=== PATIENT | male | born 1990 | race Caucasian/White ===

== ENCOUNTER 2019-03-06 17:02 | Inpatient (IN) | payer OTHER ==
[2019-03-06] MEDS ORDERED: Lorazepam 2 MG/ML VIAL ONE ×3 (17:39→19:54)
[2019-03-06] MEDS ORDERED: Morphine 4 MG/ML VIAL ONE ×2 (17:39→20:06)
[2019-03-06 17:50] LABS: #Basophils 0.1 thou/uL (0.0-0.2); #Lymphocytes 0.5 thou/uL (1.20-3.40); #Monocytes 0.5 thou/uL (0.11-0.59); #Neutrophils 6.4 thou/uL (1.40-6.50); %Basophils 1.3 % (0.0-1.0); %Eosinophils 0.1 % (0.0-10.0); %Lymphocytes 6.7 % (21.0-51.0); %Monocytes 6.8 % (0.0-10.0); %Neutrophils 85.2 % (42.0-75.0); Hemoglobin 15.2 g/dL (14.0-18.0); Mean Corpuscular HGB CONC 35.4 g/dL (32.0-36.0); Mean Corpuscular Hemoglobin 33.6 pg (27.0-31.0); Mean Corpuscular Volume 94.9 fL (78.0-98.0); Mean Platelet Volume 6.5 fL (7.4-10.4); Platelet Count 342 thou/uL (130-400); RBC Distribution Width 14.1 % (11.5-14.5); Red Blood Cell (RBC) Count 4.51 mill/uL (4.70-6.10); White Blood Cell (WBC) Count 7.5 thou/uL (4.8-10.8)
[2019-03-06] MEDS ORDERED: Bupivacaine 0.5% 10 ML VIAL ONE (17:58)
[2019-03-06 18:02] LABS: ALT (SGPT) 216 U/L (8-55); AST (SGOT) 238 U/L (5-34); Albumin 4.8 g/dL (3.5-5.0); Alkaline Phosphatase 105 U/L (40-150); Anion Gap 21 mmol/L (10-20); BUN (Urea Nitrogen) 16 mg/dL (8.9-20.6); Bilirubin, Total 1.4 mg/dL (0.2-1.2); Calc. Creatinine Clearance 0 mL/min (70-130); Calcium 10.8 mg/dL (7.8-10.44); Carbon Dioxide 19 mmol/L (22-29); Chloride 98 mmol/L (98-107); Estimated GFR-MDRD 79; Globulin 3.8 g/dL (2.4-3.5); Glucose 168 mg/dL (70-105); Protein, Total 8.6 g/dL (6.0-8.3); Sodium 134 mmol/L (136-145)
--- NOTE | 2019-03-06 18:14 | CT ---
CT brain noncontrast: HISTORY: 29-year-old male with seizure and head injury FINDINGS: There is no evidence of acute intra-axial or extra-axial hemorrhage. There is no midline shift or any other mass effect. There is no extra-axial fluid collection. There is no evidence of obstructive hydrocephalus. Calvarium is intact. There is diffuse brain atrophy, greater than expected for age. Th ere is right frontal temporal scalp contusion. IMPRESSION: 1. No acute intracranial findings. 2. Acute, traumatic, right frontotemporal scalp superficial soft tissue contusion. 3. Diffuse involutional changes of the brain, abnormal for age 29 years.
--- NOTE | 2019-03-06 18:16 | RAD ---
Radiograph left shoulder 3 views: DATE: 03/06/2019 Time: 5:49 PM HISTORY: 29-year-old male with left shoulder pain FINDINGS: There is anteromedial dislocation of the humeral head relative to the glenoid. No fracture. IMPRESSION: Anterior dislocation of the glenohumeral joint
[2019-03-06] MEDS ORDERED: Thiamine HCl 200 MG/2 ML VIAL ONE ×2 (18:39→18:42)
--- NOTE | 2019-03-06 18:54 | RAD ---
Radiograph left shoulder one view: DATE: 03/06/2019 Time: 6:56 PM HISTORY: Status post reduction first attempt of dislocated shoulder. COMPARISON: 03/06/2019 at 5:49 PM FINDINGS: Humeral head remains inferomedially dislocated relative to the glenoid, unchanged. IMPRESSION: Left anterior shoulder dislocation is unchanged.
[2019-03-06] MEDS ORDERED: KETAMINE 100 MG/ML (5ML VIAL) ONE (19:28)
[2019-03-06 23:02] VITALS: BMI 24.5
[2019-03-06] MEDS ORDERED: Lorazepam 2 MG/ML VIAL SLOW IVP PRN (23:12)
[2019-03-06] MEDS ORDERED: Diazepam 5 MG TAB PO SCH (23:15)
[2019-03-06] MEDS ORDERED: Ondansetron PF 4 MG/2 ML Vial IVP PRN (23:31)
[2019-03-06] MEDS ORDERED: Calcium Carbonate 500 MG ChewTAB PO PRN (23:31)
[2019-03-06] MEDS ORDERED: Senokot S 8.6-50 MG TAB PO PRN (23:31)
[2019-03-06] MEDS ORDERED: Loperamide HCl 2 MG CAP PO PRN (23:31)
[2019-03-06] MEDS ORDERED: Zolpidem Tartrate 5 MG TAB PO PRN (23:31)
[2019-03-06] MEDS ORDERED: Bisacodyl 5 MG TAB PO PRN (23:31)
[2019-03-06] MEDS ORDERED: Acetaminophen 325 MG TAB PO PRN (23:31)
[2019-03-06] MEDS ORDERED: Ondansetron ODT 4 MG TAB PO PRN (23:31)
[2019-03-06] MEDS ORDERED: Morphine 4 MG/ML VIAL SLOW IVP PRN (23:34)
[2019-03-06] MEDS ORDERED: Dextrose 5 % And 0.9 % NaCl 1,000 ML IV SCH (23:45)
--- NOTE | 2019-03-07 00:12 | HP ---
PRIMARY CARE PHYSICIAN: [facility] Call admission. REASON FOR ADMISSION: Alcohol withdrawal seizure and shoulder dislocation. HISTORY OF PRESENT ILLNESS: A 29-year-old male who has alcoholism, who was initially evaluated at [facility] for alcohol withdrawal and subsequent seizure as well as shoulder dislocation on the left side. The patient is from correction where he had seizure from alcohol withdrawal. He fell down and he hit his head. The patient is in [place] [facility] for last couple of days and he was arrested for drug abuse. After seizure, he had left arm shoulder dislocation. In the emergency room, the patient was appeared confused. He was not able to provide any classic history. The patient was given several doses of ketamine, Ativan, lorazepam, and morphine at [facility], and he was given IV fluids. Subsequently, he was admitted to [facility]. REVIEW OF SYSTEMS: CONSTITUTIONAL: Negative for weight loss or gain, ability to conduct usual activities. SKIN: Negative for rash, itching. EYES: Negative for double vision, pain. ENT/MOUTH: Negative for nose bleeding, neck stiffness, pain, tenderness. CARDIOVASCULAR: Negative for palpitations, dyspnea on exertion, orthopnea. RESPIRATORY: Negative for shortness of breath, wheezing, cough, hemoptysis, fever or night sweats. GASTROINTESTINAL: Negative for poor appetite, abdominal pain, heartburn, nausea, vomiting, constipation, or diarrhea. GENITOURINARY: Negative for urgency, frequency, dysuria, nocturia. MUSCULOSKELETAL: Negative for pain, swelling. NEUROLOGIC/PSYCHIATRIC: Negative for anxiety, depression. ALLERGY/IMMUNOLOGIC: Negative for skin rash, bleeding tendency. Please see my HPI for pertinent positives and negatives. All other review of systems reviewed and negative except as mentioned in HPI. PAST MEDICAL HISTORY: Alcoholism. PAST SURGICAL HISTORY: Reviewed and negative. PAST PSYCHIATRIC HISTORY: Anxiety and depression. SOCIAL HISTORY: The patient drinks alcohol mostly every day. He drinks more than 5 beers every day. He is a former smoker. He denies any other illicit drug abuse. FAMILY HISTORY: No strong family history of premature coronary artery disease, stroke, or cancer. ALLERGIES: RITALIN. CURRENT HOME MEDICATIONS: The patient is not taking any prescribed or non-prescribed medication. EMERGENCY ROOM COURSE: As mentioned above, the patient was given several doses of ketamine, Ativan, IV fluid, and morphine. PHYSICAL EXAMINATION: VITAL SIGNS: On arrival to emergency room, blood pressure 148/101, pulse 123, respiratory rate 22, temperature 98.7, saturation 95% on room air, weight 77 kg. GENERAL: The patient is currently anxious, tachycardic, appears disheveled, confused, tachycardic, tremulous, and diaphoretic. HEENT: Head; hematoma noted on the right forehead zoroastrianism area. Eyes; pupils are round and reactive to light. Extraocular muscle intact. ENT; dry mucous membranes. No oral lesion. No pharyngeal erythema. No exudate. NECK: Supple. No JVD. No thyromegaly. No carotid bruit. No jugular venous distention. LUNGS: Clear to auscultation without any rhonchi or rales. CARDIAC: S1 and S2, regular. Tachycardia. No murmur. No gallop. No rub. ABDOMEN: Soft. Bowel sounds present. Nontender. Nondistended. No organomegaly. No mass. No suprapubic tenderness. No epigastric or right upper quadrant tenderness. EXTREMITIES: Upper extremities; the patient has a sling in the left shoulder, bruises noted in both upper extremities. Lower extremities; no edema. Good distal pulsation. Rash noted around ankle. HEMATOLOGICAL SYSTEM: No lymphadenopathy. PSYCHIATRIC: Anxious affect. NEUROLOGIC: Nonfocal examination. He moves all 4 limbs. BACK: Unremarkable. No point tenderness. No CVA tenderness. SIGNIFICANT LABORATORY DATA: CT brain based on my review, no acute intracranial process. Shoulder x-ray showing shoulder dislocation. The patient already has a traumatic right frontotemporal scalp superficial soft tissue contusion, but no internal process. CBC; WBC 7.5, hemoglobin 15.2, platelet of 342 with left shift. BMP; sodium 134, potassium 4.0, chloride 98, carbon dioxide 19, anion gap 21, BUN 16, creatinine 1.1, glucose 168, calcium 10.8. LFT; bilirubin 1.4, AST 238, ALT 216, alkaline phosphatase 105, albumin 4.8, ammonia 56. ASSESSMENT AND PLAN: 1. Alcohol withdrawal seizure and alcohol withdrawal syndrome. The patient will be managed in IMCU as per alcohol withdrawal protocol treatment. We will check magnesium and phosphorus tomorrow. The patient will be given IV fluid with multivitamin. We will watch for any seizure. CT brain is negative. 2. Left shoulder dislocation. Orthopedic will be consulted for reduction. Pain will be controlled with morphine. 3. Alcoholism, counseling given to avoid alcohol abuse. We will treat withdrawal syndrome. 4. Anion gap acidosis, likely due to alcohol. 5. Scalp hematoma after fall. 6. Anxiety and depression. 7. Deep venous thrombosis prophylaxis, sequential compression device boots. Gastrointestinal prophylaxis, Pepcid 20 mg p.o. or IV daily. CODE STATUS: The patient is full code. The patient does not have any surrogate decision maker. DISPOSITION PLAN: Based on clinical course. We are expecting the patient's stay in hospital more than 2 midnights. Plan of care discussed with the patient in detail. Job ID: [id number]
[2019-03-07] MEDS: Multivitamins, Adult 10 ML in Dextrose 5 % And 0.9 % NaCl 1,000 ML IV SCH ×3 (01:39→21:17)
[2019-03-07] MEDS ORDERED: Diazepam 5 MG TAB PO SCH ×2 (03:00→03:30)
[2019-03-07] MEDS ORDERED: Thiamine HCl 200 MG/2 ML VIAL IM SCH (03:30)
[2019-03-07 04:45] LABS: #Eosinphils 0.1 thou/uL (0.0-0.7); #Lymphocytes 0.6 thou/uL (1.20-3.40); #Monocytes 0.5 thou/uL (0.11-0.59); #Neutrophils 4.5 thou/uL (1.40-6.50); %Basophils 0.8 % (0.0-1.0); %Eosinophils 1.4 % (0.0-10.0); %Lymphocytes 10.9 % (21.0-51.0); %Monocytes 8.1 % (0.0-10.0); %Neutrophils 78.8 % (42.0-75.0); Hemoglobin 12.9 g/dL (14.0-18.0); Mean Corpuscular HGB CONC 33.6 g/dL (32.0-36.0); Mean Corpuscular Hemoglobin 33.7 pg (27.0-31.0); Mean Platelet Volume 7.1 fL (7.4-10.4); Platelet Count 240 thou/uL (130-400); RBC Distribution Width 14.4 % (11.5-14.5); Red Blood Cell (RBC) Count 3.82 mill/uL (4.70-6.10); White Blood Cell (WBC) Count 5.7 thou/uL (4.8-10.8)
[2019-03-07 04:46] LABS: Prothrombin Time 13.6 SEC (12.0-14.7)
[2019-03-07 04:51] LABS: Phosphorus 3.1 mg/dL (2.3-4.7)
[2019-03-07 04:56] LABS: ALT (SGPT) 149 U/L (8-55); AST (SGOT) 188 U/L (5-34); Albumin 3.9 g/dL (3.5-5.0); Alkaline Phosphatase 91 U/L (40-150); Anion Gap 12 mmol/L (10-20); BUN (Urea Nitrogen) 14 mg/dL (8.9-20.6); Bilirubin, Total 1.7 mg/dL (0.2-1.2); Calc. Creatinine Clearance 138 mL/min (70-130); Calcium 9.4 mg/dL (7.8-10.44); Carbon Dioxide 23 mmol/L (22-29); Chloride 105 mmol/L (98-107); Estimated GFR-MDRD Greater than 90; Globulin 2.8 g/dL (2.4-3.5); Glucose 90 mg/dL (70-105); Magnesium 2.1 mg/dL (1.6-2.6); Potassium 3.5 mmol/L (3.5-5.1); Protein, Total 6.7 g/dL (6.0-8.3); Sodium 136 mmol/L (136-145)
[2019-03-07 05:24] LABS: HBCM Index 0.05 S/CO (0-0.79); HBSAg Index 0.32 S/CO (0-0.99); Hep A IgM AB Non-Reactive (NonReactive); Hep A IgM S/CO 0.13 S/CO (0-0.79); Hep B Surf Ag Non-Reactive S/CO (NonReactive); Hepatitis B Core IgM Abs Non-Reactive (NonReactive)
[2019-03-07 06:14] LABS: Hep C IgG Ab Reflex HepC Qnt (NonReactive)
[2019-03-07 06:17] LABS: Syphilis Antibody Nonreactive (Nonreactive); Syphilis Antibody Index 0.04 S/CO (<1.00 Non-Reactive)
[2019-03-07 06:55] LABS: Amphetamine Not Detected (NotDetected); Barbiturates Screen Not Detected (NotDetected); Benzodiazepine Screen Detected (NotDetected); Cocaine Metabolite Screen Not Detected (NotDetected); Medtox Control Line Valid? VALID (VALID); Medtox Reader # READER 1; Methadone Not Detected (NotDetected); Methamphetamine Not Detected (NotDetected); Opiate Screen Not Detected (NotDetected); Oxycodone Screen Not Detected (NotDetected); Phencyclidine (PCP) Not Detected (NotDetected); THC/Cannabinoid Screen Not Detected (NotDetected); Tricyclic Screen Not Detected (NotDetected)
--- NOTE | 2019-03-07 07:30 | ULT ---
GALLBLADDER ULTRASOUND: Date: 03/07/19 INDICATION: Abnormal liver function enzymes. Midline abdominal pain with nausea and vomiting. FINDINGS: There is increased echogenicity of the liver. No discrete hepatic lesion is evident. No acute gallbla dder pathology. Common duct is normal, measuring 3 mm in diameter. No ascites. IMPRESSION: 1. No acute gallbladder pathology. 2. Increased echogenicity of the liver, which can be seen in the setting of fatty infiltration. POS: WANG
--- NOTE | 2019-03-07 07:46 | RAD ---
2 views of the left shoulder: 03/07/2019 COMPARISON: 03/06/2019 at 6:56 PM HISTORY: Dislocation status post reduction FINDINGS: No widening of the acromioclavicular or coracoclavicular interspace. No evidence for disloc ation. No acute fracture. Previously noted glenohumeral joint dislocation has been reduced. IMPRESSION: Interval reduction of the left glenohumeral joint.
[2019-03-07] MEDS: Diazepam 5 MG TAB PO PRN ×4 (07:48→20:49)
[2019-03-07] MEDS ORDERED: Thiamine 100 MG TAB PO SCH (09:00)
[2019-03-07] MEDS ORDERED: Enoxaparin Sodium 40 MG/0.4 ML SYRINGE SC SCH (09:00)
[2019-03-07] MEDS ORDERED: Folic Acid 1 MG TAB PO SCH (09:00)
[2019-03-07] MEDS ORDERED: Famotidine 20 MG TAB PO SCH (09:00)
--- NOTE | 2019-03-07 09:52 | PDOC.PN ---
- Subjective Encounter Start Date: 03/07/19 Encounter Start Time: 09:51 Patient seen and examined for alcohol withdrawal seizures. Left shoulder pain. Rt sided headache - no focal deficits. No other complaints. No overnight events - Objective Resuscitation Status - Order Detail: 03/06/19 23:31 Resuscitation Status Routine Resuscitation Status: FULL: Full Resuscitation MAR Reviewed: Yes Vital Signs & Weight: Vital Signs (12 hours) Temp Pulse Resp BP Pulse Ox 03/07/19 07:26 98.6 F 03/07/19 04:00 98.9 F 98 18 129/91 H 94 L 03/07/19 03:12 99.4 F 03/07/19 00:00 98.5 F 99 18 154/96 H 95 03/06/19 23:33 98.5 F 03/06/19 23:10 95 03/06/19 22:30 98.1 F 105 H 18 155/99 H 95 Weight Weight 175 lb 12.8 oz Most Recent Monitor Data Heart Rate from ECG 93 NIBP 131/82 NIBP BP-Mean 98 Respiration from ECG 16 SpO2 95 I&O: 03/06/19 03/07/19 03/08/19 06:59 06:59 06:59 Intake Total 870 Output Total 700 Balance 170 Result Diagrams: 03/07/19 04:32 03/07/19 04:32 Radiology Reviewed by me: Yes (Left shoulder XR - reduced) EKG Reviewed by me: Yes (Tele ST) Phys Exam - Physical Examination Constitutional: NAD Respiratory: no wheezing, no rales, no rhonchi, clear to auscultation bilateral Cardiovascular: RRR, no rub tachycardic, no heaves/pulsations Gastrointestinal: soft, non-tender, no distention, positive bowel sounds Musculoskeletal: no edema, pulses present Left shoulder sling + Neurological: non-focal, normal sensation, moves all 4 limbs Psychiatric: normal affect, A&O x 3 Skin: no rash Dx/Plan - Plan DVT proph w/SCDs IMPRESSION: Alcohol withdrawal seizure Toxic Metabolic Encephalopathy due to #1 Left shoulder dislocation s/p reduction Chronic Alcohol abuse/Fatty liver Rt Frontotemporal scalp contusion Abn LFTs Hyponatremia Metabolic acidosis Former smoker PLAN: Cont IVF Cont MVM Cont ASE with Valium Cont Thiamine/Folic acid AM labs Cont other meds as below Pain control Review of Systems - Review of Systems Respiratory: negative: Cough, Dry, Shortness of Breath, Hemoptysis, SOB with Excertion, Pleuritic Pain, Sputum, Wheezing Cardiovascular: negative: chest pain, palpitations, orthopnea, paroxysmal nocturnal dyspnea, edema, light headedness, other - Medications/Allergies Allergies/Adverse Reactions: Allergies Allergy/AdvReac Type Severity Reaction Status Date / Time No Known Allergies Allergy Verified 03/06/19 23:02 Medications: Current Medications Hydrocodone Bitart/Acetaminophen ([place] 5/325) 1 tab PO Q4H PRN PRN Reason: Moderate Pain (4-6) Bisacodyl (Dulcolax) 10 mg PO DAILYPRN PRN PRN Reason: Constipation Calcium Carbonate (Tums) 1,000 mg PO Q4H PRN PRN Reason: Heartburn or Indigestion Cyanocobalamin (Vitamin B-12) 1,000 mcg PO DAILY [facility] Diazepam (Valium) 10 mg PO ONE [facility] Stop: 03/08/19 03:31 Diazepam (Valium) 10 mg PO Q4H PRN PRN Reason: FOR ASE 10 OR GREATER Stop: 03/08/19 04:00 Last Admin: 03/07/19 07:48 Dose: 10 mg Diazepam (Valium) 5 mg PO Q4H PRN PRN Reason: FOR ASE 10 OR GREATER Famotidine (Pepcid) 20 mg PO BID [facility] Folic Acid (Folvite) 1 mg PO DAILY [facility] Multivitamins 10 ml/ Dextrose/ (Sodium Chloride) 1,010 mls @ 100 mls/hr IV .Q10H6M [facility] Last Admin: 03/07/19 01:39 Dose: 1,010 mls Magnesium Sulfate 1 gm/ Sodium (Chloride) 102 mls @ 102 mls/hr IVPB ONE [facility] Stop: 03/08/19 03:31 Last Admin: 03/07/19 04:59 Dose: 102 mls Iron/Minerals/Multivitamins (Theragran M) 1 tab PO DAILY [facility] Loperamide HCl (Imodium) 2 mg PO PRN PRN PRN Reason: Diarrhea/Loose Stools Lorazepam (Ativan) 0.5 mg SLOW IVP Q6H PRN PRN Reason: Anxiety/Agitation Last Admin: 03/06/19 23:57 Dose: 0.5 mg Magnesium Oxide (Magnesium Oxide) 400 mg PO DAILY [facility] Morphine Sulfate (Morphine) 2 mg SLOW IVP Q4H PRN PRN Reason: Pain Last Admin: 03/07/19 04:54 Dose: 2 mg Ondansetron HCl (Zofran Odt) 4 mg PO Q6H PRN PRN Reason: Nausea/Vomiting Ondansetron HCl (Zofran) 4 mg IVP Q6H PRN PRN Reason: Nausea/Vomiting Senna/Docusate Sodium (Senokot S) 2 tab PO BID PRN PRN Reason: Constipation Thiamine HCl (Thiamine) 100 mg PO DAILY [facility] Thiamine HCl (Thiamine Hcl) 100 mg IM ONE [facility] Stop: 03/08/19 03:31 Thiamine HCl (Thiamine) 100 mg PO DAILY [facility] Zolpidem Tartrate (Ambien) 5 mg PO HSPRN PRN PRN Reason: Insomnia
[2019-03-07] MEDS: Folic Acid 1 MG TAB PO SCH (10:26)
[2019-03-07] MEDS: Multivitamin W/ Minerals 1 TAB PO SCH (10:27)
[2019-03-07] MEDS: HYDROcodone/Acetaminophen 5/325 mg Tablet PO PRN ×2 (10:34→20:49)
[2019-03-07] MEDS ORDERED: Potassium Chloride 20 MEQ TAB PO SCH (15:00)
--- NOTE | 2019-03-07 21:34 | CON ---
DATE OF CONSULTATION: 03/07/2019 SERVICE: Pulmonary Medicine. INTERVAL HISTORY: The patient is doing really well from respiratory standpoint. He is a 29-year-old male with significant history of alcohol abuse. He presented to the hospital with a seizure. He got arrested for drug possession. In custodial, he was away from alcohol and ended up having a seizure. He struck his head, and also dislocated his left shoulder. This was successfully reduced. He has good sensation in his arm. He denies any current fevers, chills, cough, sputum production, nausea, or vomiting. He was not having any fevers that precipitated these events. PAST MEDICAL HISTORY: 1. Alcoholism. 2. Fatty liver disease. PAST SURGICAL HISTORY: None. SOCIAL HISTORY: Positive for greater than a 12 pack of beer on a daily basis in addition of [employer] drinks. He has a remote history of smoking, but not any significant amount. Denies any illicit drugs. He has no exposure to chemicals, dust, asbestos, or tuberculosis. FAMILY HISTORY: Noncontributory. ALLERGIES: RITALIN. MEDICATIONS: List of his inpatient medications were reviewed. No specific updates were made at this time. REVIEW OF SYSTEMS: General, head, ears, eyes, nose, throat, cardiovascular, respiratory, GI, , musculoskeletal, neurologic, and skin is negative except as mentioned in the HPI. PHYSICAL EXAMINATION: VITAL SIGNS: Afebrile, pulse 83, blood pressure 136/97, respirations 15, saturation is 94% on room air. GENERAL: The patient is awake and alert, in no apparent distress. LUNGS: There is excellent air entry. No prolonged expiratory phase or wheezing present. HEART: Normal rate regular. ABDOMEN: Soft, nontender, nondistended. Bowel sounds are positive. MUSCULOSKELETAL: No cyanosis or clubbing. No pitting in the bilateral lower extremities. NEUROLOGIC: Grossly nonfocal. He has got coarse tremor throughout. He has good sensation in the arm. He has got good strength, which is bilaterally symmetric. LABORATORY DATA: WBC 5.7, hemoglobin 12.9, platelets 240,000. INR 1.0. Basic metabolic profile and liver function studies were essentially unremarkable. Total bilirubin is up trending to 1.7. AST and ALT are downtrending. Alkaline phosphatase is normal, ammonia falls within the normal limits. Phosphorus 3.1, magnesium 2.3. Benzodiazepine is positive on the urine drug screen. Hepatitis C is positive. Hepatitis B is nonreactive. IMAGIN. Ultrasound of the abdomen demonstrates right upper quadrant fatty infiltrate of the liver. No gallbladder issues are present. 2. Shoulder x-ray demonstrates reduced shoulder. 3. CT of the head demonstrates no acute intracranial abnormality. There is significant right frontotemporal scalp soft tissue injury as well as diffuse involutional changes of the brain, which is way out of proportion for a 29-year- old. ASSESSMENT: 1. Delirium tremens, resolved. 2. Acute alcohol withdrawal syndrome. 3. Seizure associated with alcohol withdrawal, resolved. 4. Left shoulder dislocation associated with seizure, status post reduction. DISCUSSION AND PLAN: The patient is currently awake, alert, cooperative, and oriented x3. At this point, he is stable for transition out of the ICU to the Stroke Unit. When he arrives out of the ICU, he will have no further requirements for inpatient Pulmonary Critical Care opinion. If he becomes increasingly confused or combative, I would prefer that he move to the ICU to initiate Precedex. When he lands on the floor, he will have no further requirements for a pulmonary Critical Care opinion and I will sign off. 70 minutes have been devoted to this patient in various activities. I personally reviewed all imaging studies and laboratory data noted within this document. For fifty percent of this time, I was interacting with the patient at the bedside or coordinating care with the care team. For the remainder of the time I was immediately available to the patient in the hospital unit. Job ID: [id number] MTDD
[2019-03-08] MEDS: HYDROcodone/Acetaminophen 5/325 mg Tablet PO PRN ×3 (01:04→09:28)
[2019-03-08] MEDS: Diazepam 5 MG TAB PO PRN ×3 (01:05→09:28)
[2019-03-08 05:38] LABS: #Eosinphils 0.2 thou/uL (0.0-0.7); #Lymphocytes 0.9 thou/uL (1.20-3.40); #Monocytes 0.5 thou/uL (0.11-0.59); #Neutrophils 3.6 thou/uL (1.40-6.50); %Basophils 0.7 % (0.0-1.0); %Eosinophils 3.1 % (0.0-10.0); %Lymphocytes 17.6 % (21.0-51.0); %Monocytes 9.7 % (0.0-10.0); %Neutrophils 68.9 % (42.0-75.0); Hemoglobin 13.9 g/dL (14.0-18.0); Mean Corpuscular HGB CONC 33.5 g/dL (32.0-36.0); Mean Corpuscular Hemoglobin 33.2 pg (27.0-31.0); Mean Corpuscular Volume 99.2 fL (78.0-98.0); Mean Platelet Volume 7.4 fL (7.4-10.4); Platelet Count 229 thou/uL (130-400); RBC Distribution Width 13.9 % (11.5-14.5); Red Blood Cell (RBC) Count 4.17 mill/uL (4.70-6.10); White Blood Cell (WBC) Count 5.2 thou/uL (4.8-10.8)
[2019-03-08] MEDS: Folic Acid 1 MG TAB PO SCH (08:43)
[2019-03-08] MEDS: Magnesium Oxide 400 MG TAB PO SCH (08:43)
[2019-03-08] MEDS: Multivitamin W/ Minerals 1 TAB PO SCH (08:43)
[2019-03-08] MEDS: Cyanocobalamin (Vitamin B-12) 1,000 MCG TAB PO SCH (08:43)
[2019-03-08] MEDS: Thiamine 100 MG TAB PO SCH (08:44)
[2019-03-08 09:27] LABS: ALT (SGPT) 123 U/L (8-55); AST (SGOT) 122 U/L (5-34); Albumin 4.1 g/dL (3.5-5.0); Alkaline Phosphatase 104 U/L (40-150); Anion Gap 14 mmol/L (10-20); BUN (Urea Nitrogen) 13 mg/dL (8.9-20.6); Calc. Creatinine Clearance 161 mL/min (70-130); Calcium 9.7 mg/dL (7.8-10.44); Carbon Dioxide 21 mmol/L (22-29); Chloride 104 mmol/L (98-107); Estimated GFR-MDRD Greater than 90; Globulin 3.3 g/dL (2.4-3.5); Glucose 72 mg/dL (70-105); Phosphorus 3.4 mg/dL (2.3-4.7); Potassium 3.6 mmol/L (3.5-5.1); Protein, Total 7.4 g/dL (6.0-8.3); Sodium 135 mmol/L (136-145)
[2019-03-08] MEDS: Multivitamins, Adult 10 ML in Dextrose 5 % And 0.9 % NaCl 1,000 ML IV SCH ×2 (09:35→21:14)
[2019-03-08] MEDS: Acetaminophen/Codeine 30-300mg Tablet PO PRN ×2 (16:10→21:23)
[2019-03-08] MEDS: Naproxen 500 MG TAB PO SCH (21:16)
[2019-03-08] MEDS ORDERED: cloNIDine 0.1 MG TAB PO PRN (22:20)
--- NOTE | 2019-03-08 22:22 | PDOC.PN ---
- Subjective Encounter Start Date: 03/08/19 Encounter Start Time: 10:30 Patient seen and examined for Alcohol withdrawal seizure. No new complaints. No new complaints. No overnight events - Objective Resuscitation Status - Order Detail: 03/06/19 23:31 Resuscitation Status Routine Resuscitation Status: FULL: Full Resuscitation MAR Reviewed: Yes Vital Signs & Weight: Vital Signs (12 hours) Temp Pulse Resp BP BP Pulse Ox 03/08/19 20:00 98.3 F 82 16 160/116 H 98 03/08/19 15:43 98.9 F 88 18 146/104 H 100 03/08/19 15:38 146/104 H 03/08/19 12:10 130/94 H 03/08/19 11:59 98.6 F 75 16 130/94 H 93 L Weight Weight 175 lb 12.8 oz Most Recent Monitor Data Heart Rate from ECG 89 NIBP 125/105 NIBP BP-Mean 111 Respiration from ECG 25 SpO2 100 I&O: 03/07/19 03/08/19 03/09/19 06:59 06:59 06:59 Intake Total 870 1532 1670 Output Total 700 725 Balance 627 789 7171 Result Diagrams: 03/08/19 04:57 03/08/19 07:54 Radiology Reviewed by me: Yes (CXR - no infiltrate) EKG Reviewed by me: Yes (Tele ST) Phys Exam - Physical Examination Constitutional: NAD Respiratory: no wheezing, no rales, no rhonchi, clear to auscultation bilateral Cardiovascular: RRR, no rub no heaves/pulsations Gastrointestinal: soft, non-tender, no distention, positive bowel sounds Musculoskeletal: no edema, pulses present Neurological: non-focal, normal sensation, moves all 4 limbs Psychiatric: normal affect, A&O x 3 Dx/Plan - Plan DVT proph w/SCDs IMPRESSION: Alcohol withdrawal seizure Toxic Metabolic Encephalopathy due to #1 Left shoulder dislocation s/p reduction Chronic Alcohol abuse/Fatty liver Rt Frontotemporal scalp contusion Abn LFTs Hyponatremia Metabolic acidosis Former smoker PLAN: Cont ASE with Valium Cont Thiamine/Folic acid/MVM/IVF Add Clonidine scheduled and PRN Cont other meds as below Ambulate Review of Systems - Review of Systems Respiratory: negative: Cough, Dry, Shortness of Breath, Hemoptysis, SOB with Excertion, Pleuritic Pain, Sputum, Wheezing Cardiovascular: negative: chest pain, palpitations, orthopnea, paroxysmal nocturnal dyspnea, edema, light headedness, other - Medications/Allergies Allergies/Adverse Reactions: Allergies Allergy/AdvReac Type Severity Reaction Status Date / Time No Known Allergies Allergy Verified 03/06/19 23:02 Medications: Current Medications Acetaminophen/Codeine Phosphate (Tylenol #3) 1 tab PO Q4H PRN PRN Reason: Moderate Pain (4-6) Last Admin: 03/08/19 21:23 Dose: 1 tab Hydrocodone Bitart/Acetaminophen ([place] 5/325) 1 tab PO Q4H PRN PRN Reason: Moderate Pain (4-6) Stop: 03/08/19 23:59 Last Admin: 03/08/19 09:28 Dose: 1 tab Bisacodyl (Dulcolax) 10 mg PO DAILYPRN PRN PRN Reason: Constipation Calcium Carbonate (Tums) 1,000 mg PO Q4H PRN PRN Reason: Heartburn or Indigestion Cyanocobalamin (Vitamin B-12) 1,000 mcg PO DAILY [facility] Last Admin: 03/08/19 08:43 Dose: 1,000 mcg Diazepam (Valium) 5 mg PO Q4H PRN PRN Reason: FOR ASE 10 OR GREATER Last Admin: 03/08/19 09:28 Dose: 5 mg Folic Acid (Folvite) 1 mg PO DAILY [facility] Last Admin: 03/08/19 08:43 Dose: 1 mg Multivitamins 10 ml/ Dextrose/ (Sodium Chloride) 1,010 mls @ 100 mls/hr IV .Q10H6M [facility] Last Admin: 03/08/19 21:14 Dose: Not Given Iron/Minerals/Multivitamins (Theragran M) 1 tab PO DAILY [facility] Last Admin: 03/08/19 08:43 Dose: 1 tab Loperamide HCl (Imodium) 2 mg PO PRN PRN PRN Reason: Diarrhea/Loose Stools Lorazepam (Ativan) 0.5 mg SLOW IVP Q6H PRN PRN Reason: Anxiety/Agitation Last Admin: 03/06/19 23:57 Dose: 0.5 mg Magnesium Oxide (Magnesium Oxide) 400 mg PO DAILY [facility] Last Admin: 03/08/19 08:43 Dose: 400 mg Morphine Sulfate (Morphine) 2 mg SLOW IVP Q4H PRN PRN Reason: Pain Last Admin: 03/07/19 04:54 Dose: 2 mg Naproxen (Naprosyn) 500 mg PO BID [facility] Stop: 03/10/19 21:01 Last Admin: 03/08/19 21:16 Dose: 500 mg Ondansetron HCl (Zofran Odt) 4 mg PO Q6H PRN PRN Reason: Nausea/Vomiting Ondansetron HCl (Zofran) 4 mg IVP Q6H PRN PRN Reason: Nausea/Vomiting Senna/Docusate Sodium (Senokot S) 2 tab PO BID PRN PRN Reason: Constipation Sodium Chloride (Flush - Normal Saline) 10 ml IVF Q12HR [facility] Last Admin: 03/08/19 21:16 Dose: 10 ml Sodium Chloride (Flush - Normal Saline) 10 ml IVF PRN PRN PRN Reason: Saline Flush Thiamine HCl (Thiamine) 100 mg PO DAILY [facility] Last Admin: 03/08/19 08:44 Dose: 100 mg Zolpidem Tartrate (Ambien) 5 mg PO HSPRN PRN PRN Reason: Insomnia Last Admin: 03/08/19 21:23 Dose: 5 mg
[2019-03-08] MEDS ORDERED: cloNIDine 0.1 MG TAB PO SCH (22:30)
[2019-03-09] MEDS: Multivitamins, Adult 10 ML in Dextrose 5 % And 0.9 % NaCl 1,000 ML IV SCH ×2 (08:25→12:17)
[2019-03-09] MEDS: Cyanocobalamin (Vitamin B-12) 1,000 MCG TAB PO SCH (08:26)
[2019-03-09] MEDS: Magnesium Oxide 400 MG TAB PO SCH (08:26)
[2019-03-09] MEDS: Thiamine 100 MG TAB PO SCH (08:26)
[2019-03-09] MEDS: cloNIDine 0.1 MG TAB PO SCH ×3 (08:26→20:21)
[2019-03-09] MEDS: Acetaminophen/Codeine 30-300mg Tablet PO PRN ×3 (08:26→20:19)
[2019-03-09] MEDS: Folic Acid 1 MG TAB PO SCH (08:26)
[2019-03-09] MEDS: Naproxen 500 MG TAB PO SCH (08:26)
[2019-03-09] MEDS: Multivitamin W/ Minerals 1 TAB PO SCH (08:26)
[2019-03-09] MEDS ORDERED: Lorazepam 1 MG TAB PO PRN (11:02)
[2019-03-09] MEDS ORDERED: Naproxen 500 MG TAB PO PRN (11:05)
--- NOTE | 2019-03-09 11:08 | PDOC.PN ---
- Subjective Encounter Start Date: 03/09/19 Encounter Start Time: 10:45 Patient seen and examined for Alcohol withdrawal seizures. No new seizures. No new focal deficits. No new complaints. No overnight events - Objective Resuscitation Status - Order Detail: 03/06/19 23:31 Resuscitation Status Routine Resuscitation Status: FULL: Full Resuscitation MAR Reviewed: Yes Vital Signs & Weight: Vital Signs (12 hours) Temp Pulse Resp BP BP Pulse Ox 03/09/19 08:26 139/96 H 03/09/19 08:21 97.9 F 83 16 139/96 H 139/96 H 97 03/09/19 08:20 97 03/09/19 04:00 97.5 F L 89 16 127/92 H 97 03/08/19 23:50 97.7 F 72 16 148/98 H 97 Weight Weight 175 lb 12.8 oz Most Recent Monitor Data Heart Rate from ECG 89 NIBP 125/105 NIBP BP-Mean 111 Respiration from ECG 25 SpO2 100 I&O: 03/08/19 03/09/19 03/10/19 06:59 06:59 06:59 Intake Total 1532 1670 Output Total 725 Balance 807 1670 Result Diagrams: 03/08/19 04:57 03/08/19 07:54 EKG Reviewed by me: Yes (Tele SR/SB) Phys Exam - Physical Examination Constitutional: NAD Respiratory: no wheezing, no rhonchi Cardiovascular: RRR, no rub Gastrointestinal: soft, non-tender, positive bowel sounds Musculoskeletal: no edema Neurological: moves all 4 limbs Dx/Plan - Plan DVT proph w/SCDs IMPRESSION: Alcohol withdrawal seizure Toxic Metabolic Encephalopathy due to #1 Left shoulder dislocation s/p reduction Chronic Alcohol abuse/Fatty liver Rt Frontotemporal scalp contusion Abn LFTs - improving Hyponatremia Metabolic acidosis Former smoker PLAN: Cont ASE Change Valium to Ativan Add Librium Cont Thiamine/Folic acid/MVM Reduce IVF Cont Clonidine Ambulate with Walking program Cont other meds as below Review of Systems - Review of Systems Respiratory: negative: Cough, Dry, Shortness of Breath, Hemoptysis, SOB with Excertion, Pleuritic Pain, Sputum, Wheezing Cardiovascular: negative: chest pain, palpitations, orthopnea, paroxysmal nocturnal dyspnea, edema, light headedness, other Gastrointestinal: negative: Nausea, Vomiting, Abdominal Pain, Diarrhea, Constipation, Melena, Hematochezia, Other - Medications/Allergies Allergies/Adverse Reactions: Allergies Allergy/AdvReac Type Severity Reaction Status Date / Time No Known Allergies Allergy Verified 03/06/19 23:02 Medications: Current Medications Acetaminophen/Codeine Phosphate (Tylenol #3) 1 tab PO Q4H PRN PRN Reason: Moderate Pain (4-6) Last Admin: 03/09/19 08:26 Dose: 1 tab Bisacodyl (Dulcolax) 10 mg PO DAILYPRN PRN PRN Reason: Constipation Calcium Carbonate (Tums) 1,000 mg PO Q4H PRN PRN Reason: Heartburn or Indigestion Chlordiazepoxide HCl (Librium) 10 mg PO TID [facility] Clonidine (Catapres) 0.1 mg PO TID [facility] Last Admin: 03/09/19 08:26 Dose: 0.1 mg Clonidine (Catapres) 0.1 mg PO Q4H PRN PRN Reason: SBP Greater Than 180 Cyanocobalamin (Vitamin B-12) 1,000 mcg PO DAILY [facility] Last Admin: 03/09/19 08:26 Dose: 1,000 mcg Famotidine (Pepcid) 20 mg PO BID [facility] Folic Acid (Folvite) 1 mg PO DAILY [facility] Last Admin: 03/09/19 08:26 Dose: 1 mg Multivitamins 10 ml/ Dextrose/ (Sodium Chloride) 1,010 mls @ 70 mls/hr IV .[id number] [facility] Iron/Minerals/Multivitamins (Theragran M) 1 tab PO DAILY [facility] Last Admin: 03/09/19 08:26 Dose: 1 tab Loperamide HCl (Imodium) 2 mg PO PRN PRN PRN Reason: Diarrhea/Loose Stools Lorazepam (Ativan) 1 mg PO Q4H PRN PRN Reason: ASE >=8 Magnesium Oxide (Magnesium Oxide) 400 mg PO DAILY [facility] Last Admin: 03/09/19 08:26 Dose: 400 mg Morphine Sulfate (Morphine) 2 mg SLOW IVP Q4H PRN PRN Reason: Pain Last Admin: 03/07/19 04:54 Dose: 2 mg Naproxen (Naprosyn) 500 mg PO BID PRN PRN Reason: Pain Stop: 03/10/19 21:01 Ondansetron HCl (Zofran Odt) 4 mg PO Q6H PRN PRN Reason: Nausea/Vomiting Ondansetron HCl (Zofran) 4 mg IVP Q6H PRN PRN Reason: Nausea/Vomiting Senna/Docusate Sodium (Senokot S) 2 tab PO BID PRN PRN Reason: Constipation Sodium Chloride (Flush - Normal Saline) 10 ml IVF Q12HR [facility] Last Admin: 03/09/19 08:27 Dose: 10 ml Sodium Chloride (Flush - Normal Saline) 10 ml IVF PRN PRN PRN Reason: Saline Flush Thiamine HCl (Thiamine) 100 mg PO DAILY [facility] Last Admin: 03/09/19 08:26 Dose: 100 mg
[2019-03-09 11:10] LABS: Hep C PCR-Quant 1860000 IU/mL (.)
[2019-03-09] MEDS ORDERED: Famotidine 20 MG TAB PO SCH (12:00)
[2019-03-09] MEDS: Famotidine 20 MG TAB PO SCH ×2 (12:17→20:20)
[2019-03-10] MEDS: cloNIDine 0.1 MG TAB PO SCH ×3 (09:42→22:21)
[2019-03-10] MEDS: Thiamine 100 MG TAB PO SCH (09:45)
[2019-03-10] MEDS: Acetaminophen/Codeine 30-300mg Tablet PO PRN ×3 (09:45→22:22)
[2019-03-10] MEDS: Cyanocobalamin (Vitamin B-12) 1,000 MCG TAB PO SCH (09:45)
[2019-03-10] MEDS: Magnesium Oxide 400 MG TAB PO SCH (09:45)
[2019-03-10] MEDS: Famotidine 20 MG TAB PO SCH ×2 (09:46→22:22)
[2019-03-10] MEDS: Multivitamin W/ Minerals 1 TAB PO SCH (09:46)
[2019-03-10] MEDS: Folic Acid 1 MG TAB PO SCH (09:46)
[2019-03-10] MEDS: Multivitamins, Adult 10 ML in Dextrose 5 % And 0.9 % NaCl 1,000 ML IV SCH (10:55)
--- NOTE | 2019-03-10 15:14 | PDOC.PN ---
- Subjective Encounter Start Date: 03/10/19 Encounter Start Time: 09:45 - Objective Resuscitation Status - Order Detail: 03/06/19 23:31 Resuscitation Status Routine Resuscitation Status: FULL: Full Resuscitation MAR Reviewed: Yes Vital Signs & Weight: Vital Signs (12 hours) Temp Pulse Resp BP BP Pulse Ox 03/10/19 14:24 135/80 03/10/19 12:00 135/80 03/10/19 11:41 98.9 F 71 16 135/80 96 03/10/19 09:42 126/84 03/10/19 08:00 97.5 F L 66 20 141/86 H 141/86 H 97 03/10/19 04:28 126/84 03/10/19 04:00 97.7 F 64 16 126/84 98 Weight Weight 175 lb 12.8 oz Most Recent Monitor Data Heart Rate from ECG 89 NIBP 125/105 NIBP BP-Mean 111 Respiration from ECG 25 SpO2 100 I&O: 03/09/19 03/10/19 03/11/19 06:59 06:59 06:59 Intake Total 1670 2169 Output Total 100 Balance 1670 2069 Result Diagrams: 03/08/19 04:57 03/08/19 07:54 EKG Reviewed by me: Yes (Tele SR) Phys Exam - Physical Examination Constitutional: NAD Respiratory: no wheezing, no rhonchi Cardiovascular: RRR, no rub Gastrointestinal: soft, non-tender, positive bowel sounds Neurological: non-focal, moves all 4 limbs Dx/Plan - Plan DVT proph w/SCDs IMPRESSION: Alcohol withdrawal seizure Toxic Metabolic Encephalopathy due to #1 Left shoulder dislocation s/p reduction Chronic Alcohol abuse/Fatty liver Rt Frontotemporal scalp contusion Abn LFTs - improving Hyponatremia Metabolic acidosis Former smoker PLAN: Cont ASE with Ativan Cont Librium/Clonidine Cont Thiamine/Folic acid/MVM Cont IVF DC in 24-48 hr if stable Cont other meds as below Review of Systems - Review of Systems Respiratory: negative: Cough, Dry, Shortness of Breath, Hemoptysis, SOB with Excertion, Pleuritic Pain, Sputum, Wheezing Cardiovascular: negative: chest pain, palpitations, orthopnea, paroxysmal nocturnal dyspnea, edema, light headedness, other - Medications/Allergies Allergies/Adverse Reactions: Allergies Allergy/AdvReac Type Severity Reaction Status Date / Time No Known Allergies Allergy Verified 05/01/19 23:02 Medications: Current Medications Acetaminophen/Codeine Phosphate (Tylenol #3) 1 tab PO Q4H PRN PRN Reason: Moderate Pain (4-6) Last Admin: 03/10/19 14:23 Dose: 1 tab Bisacodyl (Dulcolax) 10 mg PO DAILYPRN PRN PRN Reason: Constipation Calcium Carbonate (Tums) 1,000 mg PO Q4H PRN PRN Reason: Heartburn or Indigestion Chlordiazepoxide HCl (Librium) 10 mg PO TID [facility] Last Admin: 03/10/19 14:24 Dose: 10 mg Clonidine (Catapres) 0.1 mg PO TID [facility] Last Admin: 03/10/19 14:24 Dose: 0.1 mg Clonidine (Catapres) 0.1 mg PO Q4H PRN PRN Reason: SBP Greater Than 180 Cyanocobalamin (Vitamin B-12) 1,000 mcg PO DAILY [facility] Last Admin: 03/10/19 09:45 Dose: 1,000 mcg Famotidine (Pepcid) 20 mg PO BID [facility] Last Admin: 03/10/19 09:46 Dose: 20 mg Folic Acid (Folvite) 1 mg PO DAILY [facility] Last Admin: 03/10/19 09:46 Dose: 1 mg Multivitamins 10 ml/ Dextrose/ (Sodium Chloride) 1,010 mls @ 70 mls/hr IV .[id number] [facility] Last Admin: 03/10/19 10:55 Dose: 1,010 mls Iron/Minerals/Multivitamins (Theragran M) 1 tab PO DAILY [facility] Last Admin: 03/10/19 09:46 Dose: 1 tab Loperamide HCl (Imodium) 2 mg PO PRN PRN PRN Reason: Diarrhea/Loose Stools Lorazepam (Ativan) 1 mg PO Q4H PRN PRN Reason: ASE >=8 Magnesium Oxide (Magnesium Oxide) 400 mg PO DAILY [facility] Last Admin: 03/10/19 09:45 Dose: 400 mg Morphine Sulfate (Morphine) 2 mg SLOW IVP Q4H PRN PRN Reason: Pain Last Admin: 03/07/19 04:54 Dose: 2 mg Naproxen (Naprosyn) 500 mg PO BID PRN PRN Reason: Pain Stop: 03/10/19 21:01 Last Admin: 03/09/19 20:19 Dose: 500 mg Ondansetron HCl (Zofran Odt) 4 mg PO Q6H PRN PRN Reason: Nausea/Vomiting Ondansetron HCl (Zofran) 4 mg IVP Q6H PRN PRN Reason: Nausea/Vomiting Senna/Docusate Sodium (Senokot S) 2 tab PO BID PRN PRN Reason: Constipation Sodium Chloride (Flush - Normal Saline) 10 ml IVF Q12HR [facility] Last Admin: 03/10/19 09:47 Dose: 10 ml Sodium Chloride (Flush - Normal Saline) 10 ml IVF PRN PRN PRN Reason: Saline Flush Thiamine HCl (Thiamine) 100 mg PO DAILY [facility] Last Admin: 03/10/19 09:45 Dose: 100 mg
[2019-03-11] MEDS: Multivitamins, Adult 10 ML in Dextrose 5 % And 0.9 % NaCl 1,000 ML IV SCH ×2 (08:05→09:05)
[2019-03-11] MEDS: Acetaminophen/Codeine 30-300mg Tablet PO PRN (09:03)
[2019-03-11] MEDS: Famotidine 20 MG TAB PO SCH (09:05)
[2019-03-11] MEDS: Cyanocobalamin (Vitamin B-12) 1,000 MCG TAB PO SCH (09:06)
[2019-03-11] MEDS: Magnesium Oxide 400 MG TAB PO SCH (09:06)
[2019-03-11] MEDS: Thiamine 100 MG TAB PO SCH (09:06)
[2019-03-11] MEDS: Folic Acid 1 MG TAB PO SCH (09:06)
[2019-03-11] MEDS: Multivitamin W/ Minerals 1 TAB PO SCH (09:06)
[2019-03-11] MEDS: cloNIDine 0.1 MG TAB PO SCH (09:06)
--- NOTE | 2019-03-11 11:03 | DIS ---
DATE OF ADMISSION: 03/06/2019 DATE OF DISCHARGE: 03/11/2019 DISCHARGE DISPOSITION: Home. FOLLOWUP: 1. With [facility]. 2. The patient was advised to follow up on hepatitis C PCR report. ALLERGIES: NO KNOWN DRUG ALLERGIES. THE PATIENT WAS SEEN ON THE DAY OF DISCHARGE. DENIES ANY NEW COMPLAINTS. THE PATIENT WAS EXTENSIVELY COUNSELED ON ALCOHOL CESSATION. DISCHARGE MEDICATIONS: 1. Thiamine 100 mg daily. 2. Multivitamin one tablet daily. 3. Folic acid 1 mg p.o. daily. 4. Clonidine as needed for systolic blood pressure more than 180. 5. Librium 10 mg three times daily for next three days, #10 was provided. BRIEF HOSPITAL COURSE: The patient is a 29-year-old white male with alcoholism, presented to the emergency room with seizure with subsequent left shoulder dislocation. His shoulder was reduced in the emergency room. This was confirmed with the shoulder x-ray. He was started on alcohol withdrawal protocol with thiamine, folic acid, and multivitamin. His alcohol withdrawal symptoms have almost completely resolved. He was extensively counseled to quit drinking. He also had abnormal LFTs with total bilirubin of 1.4 on admission with AST 238, ALT 216, and alkaline phosphatase 105. His LFTs two days later was total bilirubin 1.0 with AST 122, ALT 123. Acute hepatitis profile was positive for hepatitis C antibody. Hepatitis C PCR is pending at this time. Primary care physician advised to follow. He will benefit from a GI evaluation as outpatient. Plan of care was discussed with the patient in detail, he stated understanding. FINAL DIAGNOSES: 1. Alcohol withdrawal seizure. 2. Toxic metabolic encephalopathy secondary to alcohol withdrawal seizure. 3. Left shoulder dislocation with subsequent reduction in the emergency room. 4. Chronic alcohol abuse. 5. Fatty liver on the ultrasound, probably from chronic alcoholism. 6. Right frontotemporal scalp contusion, improved. 7. Abnormal LFTs, improving. 8. Hyponatremia, improving. 9. Metabolic acidosis, improving. 10. Former smoker. PLAN: Plan of care was discussed with the patient in detail, he stated understanding. Job ID: [id number]
[2019-03-11 12:14] VITALS: BP 128/85; TEMP 97.9
== END 2019-03-11 15:50 | disposition home or self-care (01) | DRG 896 ==
LOC: SCSER 17:02 → IMCU/EMU 21:55 → 2SE 03-07 17:27
PROVIDERS: ADMIT Family Medicine; ATTEND Family Medicine
PROC: 0RSKXZZ Reposition Left Shoulder Joint, External Approach (ICD-10-PCS; principal; 2019-03-06)
DX: F10.231 Alcohol dependence with withdrawal delirium (principal); G92 Toxic encephalopathy; E87.2 Acidosis; E87.1 Hypo-osmolality and hyponatremia; B17.10 Acute hepatitis C without hepatic coma; K70.0 Alcoholic fatty liver; S43.005A Unspecified dislocation of left shoulder joint, initial encounter; R56.9 Unspecified convulsions; F32.9 Major depressive disorder, single episode, unspecified; F41.9 Anxiety disorder, unspecified; S00.03XA Contusion of scalp, initial encounter; Y92.149 Unspecified place in prison as the place of occurrence of the external cause; X83.8XXA Intentional self-harm by other specified means, initial encounter; Z87.891 Personal history of nicotine dependence; Z88.8 Allergy status to other drugs, medicaments and biological substances
CPT/HCPCS: 23650; 36415; 70450; 76705; 80053; 80074; 80306; 82140; 83735; 84100; 85025; 85610; 86780; 87522; 94760; 96361; 96374; 96375; 96376; 99151; 99153; J2060; J2270; J3411; J3475; J3490; J7042